=== PATIENT | female | born 1995 | race Caucasian/White ===

== ENCOUNTER 2020-02-19 19:10 | Inpatient (IN) | payer MEDICAID, SELFPAY ==
[2020-02-19] VITALS (8 sets, daily range): BP systolic 99–118; BP diastolic 64–86; PULSE 86–113; TEMP 36.5–36.6; BMI 26.6
[2020-02-19 19:55] LABS: Basophils Percent Auto 0.1 % (0.2-1.2); Eosinophils Percent Auto 0.2 % (0-4.4); Hematocrit 35.6 % (37.0-47.0); Hemoglobin 11.9 g/dL (12.0-15.0); Immature Granulocyte Absolute 0.06 K/mm3 (0.00-0.031); Immature Granulocyte Percent A 0.4 % (0-0.5); Lymphocytes Absolute Auto 1.67 K/mm3 (0.9-3.2); Lymphocytes Percent Auto 11.6 % (18.3-44.2); Mean Corpuscular HGB Conc 33.4 g/dl (32-36); Mean Corpuscular Hemoglobin 29.4 pg (26-34); Mean Corpuscular Volume 87.9 fl (80-100); Mean Platelet Volume 12.1 fl (7.4-10.4); Monocytes Absolute Auto 0.8 K/mm3 (0.1-0.6); Monocytes Percent Auto 5.6 % (2.6-8.5); Neutrophils Absolute Auto 11.8 K/mm3 (1.3-6.7); Neutrophils Percent Auto 82.1 % (45.5-73.1); Platelet Count Result 179 k/mm3 (150-375); Red Blood Count 4.05 M/mm3 (4.2-5.4); Red Cell Distribution Width 12.2 % (11.5-14.5); White Blood Count 14.4 K/mm3 (4.5-10.0)
--- NOTE | 2020-02-19 20:08 | LDADM ---
This patient, Alice Trinh, was admitted to Labor/Delivery/Recovery 104 on 02/19/20 at 19:10. Plans for labor, pain management and were discussed with patient. Patient/family oriented to hospital policies and general routines including ID bracelet, bed and alarms, visiting hours, pain management, procedures, bathroom and other care routines, personal items, smoking policy, room service/diet and guest tray routines, infant security routines, and visiting hours. Patient/Family are encouraged to report perceived risks to care and to ask questions if they do not understand what they are told or what they should do. See OBIX for further documentation.
[2020-02-19] MEDS: DINOPROSTONE 10 MG VAG INSERT VAGINAL (20:15)
[2020-02-20] VITALS (45 sets, daily range): BP systolic 97–152; BP diastolic 47–133; PULSE 66–252; RESP 18; TEMP 36.1–37.3; O2SAT 99–100
[2020-02-20] MEDS: LACTATED RINGERS 1,000 ML 125 ML IV CONT ×3 (05:19→07:58)
[2020-02-20] MEDS: OXYTOCIN 30 UNITS/NS 500 ML 30 UNITS/500 ML BAG 6 UNITS IV CONT (05:20)
--- NOTE | 2020-02-20 06:33 | WPDHPUPDATE1 ---
History and Physical Update Update Date/Time: 02/20/20 06:33 History and Physical has been reviewed, including an updated exam of the patient. There are NO changes in the patient's condition. Risks, benefits, and alternatives have been discussed and questions answered. Patient agrees to proceed with procedure.
--- NOTE | 2020-02-20 06:33 | WPDOBADMIT ---
Obstetrics - Admit Note Admission Note: record reviewed. No pertinent additions to the history and/or any subsequent changes in the physical findings that are not consistent with the expected course of the were found. Additions to the history and/or subsequent changes in the physical findings follow. None.
[2020-02-20 08:58] LABS: Amphetamine Screen Urine Negative (Negative); Barbiturate Screen Urine Negative (Negative); Benzodiazepines Screen Urine Negative (Negative); Cannabinoid Screen Urine Negative (Negative); Cocaine Screen Urine Negative (Negative); Methadone Screen Urine Negative (Negative); Opiate Screen Urine Negative (Negative); Phencyclidine Screen Urine Negative (Negative)
[2020-02-20] MEDS: ONDANSETRON INJ 4 MG/2 ML VIAL IV PUSH (09:53)
[2020-02-20 11:26] LABS: Rapid Plasma Reagin Non-Reactive (NonReactive)
--- NOTE | 2020-02-20 12:59 | PM.OBPRVD ---
OB - Delivery Note Procedure Delivery date: 02/20/20 Route of delivery: vacuum extraction Indication for instrumentation: nonreassuring FHR tracing Episiotomy description: None Laceration description: Perineal - 2nd Degree Delivery repair: chromic Specimen: No Estimated blood loss (mL): 400 Anesthesia type: Epidural Disposition: floor Narrative: Patient prepped in usual manner for this procedure due to low heart tones vacuum was placed with the 1st contraction vertex was delivered. The naso and oropharynx of the baby were suctioned and the rest of baby was delivered. Placenta delivered spontaneously. Second-degree laceration was noted and vaginal mucosa was approximated in 2 0 chromic running interlocking manner. Deep tissue was approximated with interrupted 2 0 chromic sutures. Subcuticular layer of 2 0 chromic to approximate the perineum. Uterus is well contracted. At this point seizure was considered terminated with immediate postoperative condition of mother and baby both excellent. Baby Weeks of gestation at delivery: 40 gender: Male Weight (pounds): 7 Weight (ounces): 15 presentation: vertex Placenta delivery description: Spontaneous score one minute: 8 score five minutes: 9
[2020-02-20] MEDS: OXYTOCIN 30 UNITS/NS 500 ML 30 UNITS/500 ML BAG 125 UNITS IV CONT (13:13)
[2020-02-20] MEDS: BENZOCAINE 20% AER SPR (*SP) 56 GM CAN 1 SPRAY TOPICAL (14:39)
[2020-02-20] MEDS: DIBUCAINE 1% OINTMENT 30 GM TUBE 1 APPLIC TOPICAL (14:40)
[2020-02-20] MEDS: LANOLIN (LANSINOH) 7.5 GM CREAM 1 APPLIC (14:40)
[2020-02-20] MEDS: IBUPROFEN 600 MG TABLET PO ×2 (14:45→20:31)
--- NOTE | 2020-02-20 15:40 | PC.NURSE ---
Patient transferred to post room #279 per wheelchair from labor and delivery. Support person present. Oriented to unit, room, information board, rooming in, admission packet and security measures. Patient verbalizes understanding.
[2020-02-21 05:45] LABS: Hemoglobin 10.5 g/dL (12.0-15.0)
--- NOTE | 2020-02-21 08:00 | PC.NURSE ---
PT introductions made and plan of care discussed per post , pain management, breast feeding, daily care activities. PT verbalized understanding of such care.
--- NOTE | 2020-02-21 08:22 | PM.OBDSVD ---
OB - DS: Summary OB Procedures : None OB Procedures Intrapartum: Vacuum extraction OB Procedures: : None Time Spent with Patient Time attestation: Total time spent providing and/or coordinating discharge services: DS: Data Data Completed and Pending Labs on day of discharge: Labs from last 24 hours 02/21/20 02/20/20 02/19/20 05:25 08:25 19:49 Hgb 10.5 L Hct 32.0 L Urine Opiates Screen Negative Urine Methadone Screen Negative Ur Barbiturates Screen Negative Ur Phencyclidine Scrn Negative Ur Amphetamine Screen Negative U Benzodiazepines Scrn Negative Urine Cocaine Screen Negative U Cannabinoids Screen Negative RPR Non-reactive Discharge Plan Discharge Discharging Clinician: Pollo Vincent Patient Disposition: Home, Self-Care Activity: as tolerated Diet: as tolerated Patient Instructions: Antibiotic Form Stand Alone Forms: General Discharge Information Follow-up/Referrals: Pollo Vincent MD [Physician] - 3 Weeks Discharge Medications: New hydrocodone-acetaminophen 5-325 mg Tablet 1 tab PO Q3H PRN (Reason: Moderate Pain (4-6)) Qty: 12 RF: 0 ibuprofen 600 mg Tablet 600 mg PO Q6H PRN (Reason: Cramping) Qty: 30 RF: 0 No Action No Home Medications RF: 0 Date of admission: 02/19/20 19:10 Primary Care Provider: UNKNOWN,DOCTOR Admitting Provider: Pollo Vincent Attending physician on admission: Pollo Vincent
[2020-02-21 08:30] VITALS: BP 90/54; PULSE 84; RESP 16; TEMP 37.1; O2SAT 100
--- NOTE | 2020-02-21 10:05 | PC.NURSE ---
Consulted with patient, mother reports she was given a nipple shield to assist with deep latch. Mother states she has attempted a few times and has been unable to get to latch. Mother states she is concerned with infant feeding status and would like to supplement. Advise she may supplement as she chooses, suggested mother breastfeed first. Discussed nipple shield precautions and possible complications. Instructions given on application and cleaning of shield. Patient able to return demonstration on proper application of shield. Discussed the need to initiate pumping if infant continues to nurse with the shield. Patient verbalizes understanding. Reviewed infant feeding cues, frequencies, duration of feedings, feeding elimination flow sheet, and signs of adequate intake. Demonstrated stimulation techniques to wake infant for feeding. Assisted with to breast. Reviewed positioning/alignment in cross cradle, holding breast in U hold and guided asymmetrical latch on. Several attempts before infant was able to latch correctly. nursed sleepily with occasional draws. Reviewed signs of a correct latch, effective nursing and suck swallow ratio. Nipple care reviewed. Instructed mother to call out for RN assistance if she is unable to latch for feeding or she has discomfort with nursing. Instructed feeding should be initiated three hours from start of last feeding or if feeding cues are noted before. Mother voiced understanding of information shared.
[2020-02-21] MEDS: DOCUSATE SODIUM 100 MG CAPSULE PO ×2 (11:07→18:17)
[2020-02-21 11:08] VITALS: PULSE 84; RESP 16; O2SAT 100
[2020-02-21] MEDS: IBUPROFEN 600 MG TABLET PO ×3 (11:08→21:29)
[2020-02-21] MEDS: MULTIVIT/MIN/PREN/FOL AC/IRON TABLET 1 TAB PO (11:08)
--- NOTE | 2020-02-21 15:50 | PC.NURSE ---
Breast pump provided due to ineffective feeding/nipple shield use. Instructions given on breast pump care and usage, pumping schedule, nipple care, and collection and storage of breast milk. Encouraged [id number], breast massage and manual expression to stimulate supply. Assessed patient for correct flange size, placement and draw. Patient verbalizes and demonstrates understanding of instructions.
[2020-02-21 20:00] VITALS: BP 114/75; PULSE 90; RESP 16; TEMP 36.6; O2SAT 100
[2020-02-22 07:40] VITALS: BP 108/64; PULSE 79; RESP 18; TEMP 37.2; O2SAT 99
[2020-02-22] MEDS: DOCUSATE SODIUM 100 MG CAPSULE PO (07:48)
[2020-02-22] MEDS: MULTIVIT/MIN/PREN/FOL AC/IRON TABLET 1 TAB PO (07:48)
[2020-02-22] MEDS: IBUPROFEN 600 MG TABLET PO (07:49)
[2020-02-22] MEDS: MEASLES,MUMPS,RUBELLA VACCINE 0.5 ML VIAL SUB-Q (09:23)
--- NOTE | 2020-02-22 09:50 | PC.NURSE ---
Mother is able to independently latch with appropriate positioning/alignment using nipple shield. She denies any nipple discomfort, is feeding as required and waking to feed if needed. Infant continues with ineffective/sleepy feeding and requires 20 mls supplementation after each . Infant is more eager with attempts and duration. Mother will continue to pump and offer EBM as available as part of supplement. is currently meeting outcomes for weight, output, jaundice and feeding frequencies. Mother states she feels comfortable with current feeding plan of bottle//pumpimg at home. Discussed weaning from supplementation. Mother states she is a WIC client, advised not to discontinue supplementation until a feeding is observed by WIC, follow up RN or LC. Reviewed transition to breast milk, signs of adequate intake, and engorgement/relief. Instructed to call ICP if intake/output less than required. Reviewed regular medications mother is taking. Information provided per Traci. Reviewed community resources on the [facility] website and in the Mom/Baby guide. Information on outpatient services provided. Mother has no further questions at this time.
[2020-02-22] MEDS: WITCH HAZEL 40 PADS 1 PAD TOPICAL (12:35)
--- NOTE | 2020-02-22 15:32 | PC.NURSE ---
Patient viewed the discharge video Mother & Baby Care, The First Two Weeks . Patient was given the opportunity and encouraged to ask questions. Patient verbalized understanding of information shared and has been given the mother/baby guide for home reference.
[2020-02-23 09:30] VITALS: BP 117/73; PULSE 93; RESP 16; TEMP 37.2; O2SAT 99
--- NOTE | 2020-02-25 20:27 | PM.OBDSVD ---
OB - DS: Summary OB Procedures : None OB Procedures Intrapartum: Spontaneous Vag Delivery OB Procedures: : None Time Spent with Patient Time attestation: Total time spent providing and/or coordinating discharge services: Discharge Plan Discharge Discharging Clinician: Pollo Vincent Patient Disposition: Home, Self-Care Activity: as tolerated Diet: as tolerated Discharge Instructions: Education: Mom and Baby Guide Given to: Patient Follow-Up: Call your delivering provider's office for an appointment to be seen in: 3 weeks Mom and baby should come to the [facility] for the follow-up appointment. Appointment Date/Time: Tuesday02/23/2020 at 9:00 am Call [phone] if you are unable to keep your appointment time. BREAST CARE: 1. Wear a snug supportive bra. 2. For engorgement discomfort: Breast Feeding: A. Apply warm moist washcloths B. Express milk as needed to relieve engorgement C. Wear loose clothing Bottle Feeding: A. May apply ice packs 3. For sore nipples: A. Identify correct latch-on B. Apply warm moist washcloths before and after nursing C. Air dry nipples after nursing D. May apply Lansinoh cream to nipples EPISIOTOMY/PERINEAL CARE: 1. Until bleeding stops, use your torrey bottle after urinating 2. Change your pad frequently throughout the day 3. You may take sitz baths several times a day (fill your bathtub with warm water and soak for 20 minutes.) Do NOT bathe in the water 4. No tub baths until seen by your physician - You may shower ACTIVITY: 1. Rest as much as possible. 2. Do not exercise or lift anything heavier than your baby (such as laundry or other children.) 3. Avoid stairs or driving as much as possible. 4. Do not put anything into the vagina. No douching, tampons, or sexual activity until seen by physician. NOTIFY PHYSICIAN IF YOU HAVE ANY QUESTIONS OR IF ANY OF THE FOLLOWING SYMPTOMS OCCUR: 1. If your episiotomy or incision becomes red, swollen, or more painful than what you have experienced in the hospital. 2. If your vaginal bleeding becomes foul smelling. 3. If your vaginal bleeding becomes more heavy than a period or if your bleeding changes from pink to bright red. However, you may pass an occasional walnut-sized clot once or twice for the first week . 4. If you experience a sharp, shooting pain in you calves. 5. If you discover a hard, reddened area on your breast or if you experience flu-like symptoms. DIET: 1. Eat regular, well-balanced meals. 2. Drink plenty of fluids daily. If , drink to thirst. Follow-up/Referrals: Pollo Vincent MD [Physician] - 3 Weeks Discharge Medications: New hydrocodone-acetaminophen 5-325 mg Tablet 1 tab PO Q3H PRN (Reason: Moderate Pain (4-6)) Qty: 12 RF: 0 ibuprofen 600 mg Tablet 600 mg PO Q6H PRN (Reason: Cramping) Qty: 30 RF: 0 Date of admission: 02/19/20 19:10 Primary Care Provider: UNKNOWN,DOCTOR Admitting Provider: Gail De La Cruz Discharge Date/Time: 02/22/20 13:38 Attending physician on admission: Pollo Vincent
== END 2020-02-22 13:38 | disposition home or self-care (01) | DRG 560 ==
LOC: ANHLDR 02-20 12:28 → ANHOB2 02-20 16:22
PROVIDERS: Admitting Provider Obstetrics & Gynecology; Visit Provider Obstetrics & Gynecology
DX: O36.8330 Maternal care for abnormalities of the fetal heart rate or rhythm, third trimester, not applicable or unspecified (principal); Z37.0 Single live birth; Z3A.40 40 weeks gestation of pregnancy; O70.1 Second degree perineal laceration during delivery
CPT/HCPCS: 36415; 80307; 85014; 85018; 85025; 86592; 86850; 86900; 86901; 90710; A9270; J0131; J2405; J2590; J2795; J3010; J7120